=== PATIENT | male | born 2000 | race Caucasian/White ===

== ENCOUNTER 2023-06-20 10:12 | Outpatient (AMB) | payer BC, SELFPAY ==
[2023-06-20 10:40] VITALS: BP 110/70; PULSE 72; O2SAT 98; BMI 21.5
--- NOTE | 2023-06-20 10:40 | MHC.PC.OV ---
Vital Signs 06/20/23 10:40 Height 5 ft 11 in Weight 154 lb 4 oz BMI 21.5 BP 110/70 Blood Pressure Location Lt brachial Position Sitting Pulse 72 Pulse Source Pulse Oximeter Pulse Oximetry (%) 98 Oxygen Delivery Method Room Air Intake Visit Reasons: Est Care/ Requesting Annual PE Intake Note: pt is here for establish care, requesting PE Health Director Required: No Accompanied by: Self / Same As Patient Allergies Seasonal Allergies Allergy (Mild, Verified 06/20/23 10:41) sneezing, runny nose Tobacco use date assessed: 06/20/23 Dental Screening Dental Screen Date: 06/20/23 Did you have a dental visit in the last 12 months?: Yes Did you have a dental problem in the last 6 months where you did not have access to dental care?: No Was dental information given to patient?: Patient has dentist HPI HPI Comments History of Present Illness Details Patient is a 23-year-old male who I am meeting for the 1st time. Patient is transferring from pediatric care to Adult Medicine. He has a past medical history significant for type 1 diabetes, is currently being seen by [facility] adult Endocrinology. Patient currently utilizing insulin pump. Her [facility] Endocrinology office notes patient's most recent A1c on 05/22/2023 was 9.2. Patient was educated to he more balance diet and increase exercise as tolerated. Patient is up-to-date with ophthalmology. Patient does not currently see podiatry. Does have foot checks at endocrine office. Up-to-date with influenza vaccine. Next tetanus is due 2024. Will draw labs today. [facility] Medical History ADHD (attention deficit hyperactivity disorder), inattentive type Type 1 diabetes mellitus Surgical History No pertinent past surgical history Family History (Updated 06/20/23 @ 10:59 by CRAIG Manuel) Father No problems noted. Mother No problems noted. Brother No problems noted. Paternal Grandfather Myocardial infarction Social History Household Members: Family Housing: House (with parents ) Patient Tobacco Use Status: Never used Tobacco e-Cigarette/Vaping Use: Never Used Current occupational status: employed Current occupation: post office Current occupational exposures/hazards: No Cognitive needs: No Hearing needs: No Vision needs: Yes Questionnaire PHQ-9 Over the last 2 weeks, how often have you been bothered by any of the following problems? 1. Little interest or pleasure in doing things: not at all 2. Feeling down, depressed, or hopeless: not at all 3. Trouble falling or staying asleep, or sleeping too much: not at all 4. Feeling tired or having little energy: not at all 5. Poor appetite or overeating: not at all 6. Feeling bad about yourself - or that you are a failure or have let yourself or your family down: not at all 7. Trouble concentrating on things, such as reading the newspaper or watching television: not at all 8. Moving or speaking so slowly that other people could have noticed. Or the opposite - being so fidgety or restless that you have been moving around a lot more than usual: not at all 9. Thoughts that you would be better off or of hurting yourself in some way: not at all Total score: 0 Depression Screening Interpretation: Negative Depression Screening Done: Yes 91505 - PHQ-9 Billing: Yes Source: Developed by Drs. Dalton Gordon, Hannah Maciel, James Miller and colleagues, with an educational anna from [employer]. Thrive Questionnaire Date Thrive assessed: 06/20/23 I am a: Patient What is your living situation today?: I have a steady place to live Within the past 12 months, did the food you bought not last and you didn't have the money to get more?: Never true Within the past 12 months, did you worry whether your food would run out before you got money to buy more?: Never true Do you have trouble paying for medicines?: No Do you have trouble getting transportation to medical appointments?: No Do you have trouble paying your heating and electricity bill?: No Do you have trouble taking care of your child, family member or friend?: No Do you have trouble with day-to-day activities such as bathing, preparing meals, shopping, managing finances, etc.?: No Are you currently unemployed and looking for a job?: No Are you interested in more education?: No Please select the resources that you would like help with: None Currently or been in a relationship where the following occur: no concerns reported THRIVE Score: 0 AUDIT C Alcohol Use Questionnaire (AUDIT-C) 1. How often do you have a drink containing alcohol?: Never 3. How often do you have six or more drinks on one occasion?: Never Total Score: 0 Score Reviewed/Action Taken: Yes PENNIE-7 AMB Questionnaire PENNIE-7 Date PENNIE - 7 assessed: 06/20/23 Feeling nervous, anxious, or on edge: 0 = Not at all Not being able to stop or control worryin = Not at all Worrying too much about different things: 0 = Not at all Trouble relaxin = Not at all Being so restless that it is hard to sit still: 0 = Not at all Becoming easily annoyed or irritable: 0 = Not at all Feeling afraid as if something awful might happen: 0 = Not at all Total PENNIE-7 score (0-4 normal; 5-9 mild; 10-14 moderate; 15-21 severe): 0 Source: Developed by Drs. Dalton Gordon, Hannah Maciel, James Miller and colleagues, with an educational anna from [employer]. PENNIE-7 Assessment Billing PENNIE-7 Assessment Tool: PENNIE-7 Assessment 29019 Review of Systems Const All systems reviewed & are unremarkable except as noted in HPI and below Denies chills and Denies fatigue Eyes Denies blurry vision ENT Denies vertigo and Denies dizziness Card Denies chest pain and Denies dyspnea Resp Denies dyspnea GI Denies diarrhea, Denies nausea and Denies vomiting Neuro Denies vertigo and Denies dizziness Psych Denies homicidal ideation and Denies suicidal ideation Endo Denies fatigue, Denies polyphagia, Denies polydipsia and Denies polyuria Physical exam (Primary Care) BMI result Body Mass Index 21.5 Tobacco/Smoking Status: Tobacco use Status Tobacco use date assessed 06/20/23 06/20/23 10:42 Depression Screening Interpretation: Negative Thrive Assessment: Date of Thrive Assessment Date Thrive assessed 11/16/21 06/20/23 10:41 Currently or been in a relationship where the following occur: no concerns reported Const Other: Appearance: Alert.? Oriented X3.? No acute distress.? Head: Normocephalic, atraumatic, Eyes: Pupils equal, round and reactive to light.? CVS: Normal heart rate and rhythm.? Pulses normal.? Respiratory: No respiratory distress.? Breath sounds normal.? Neuro: Oriented X 3.? No motor deficit.? No sensory deficit. CN 2-12 intact Assessment and Plan Assessment & Plan (1) Type 1 diabetes mellitus: Comment: Will draw labs today. Patient has established care through [facility] adult endocrinology. Patient has been reinforced that he should eat a balanced diet. Patient works overnight and will work on snacking less. Patient will also get referral to Podiatry. Patient is up-to-date with ophthalmology Code(s): E10.9 - Type 1 diabetes mellitus without complications Qualifiers: Diabetes mellitus complication status: without complication Qualified Code(s): E10.9 - Type 1 diabetes mellitus without complications Plan: Take your medications as prescribed. If you were prescribed antibiotics today, it is important that you take your medication to their entirety, do not skip any doses, do not finish them early. Follow-up with your primary care provider this week. Return to the emergency department with new or worsening symptoms. Such as fevers, chills, chest pain, shortness of breath, nausea, vomiting, dizziness, headache, vision changes, lethargy In case of emergency call 911 Plan Follow-up with PCP for physical exam Orders: Orders Vitamin D 25-OH (D2 and D3) Today Z13.21 - Encounter for screening for nutritional disorder Vitamin B12 Today Z13.21 - Encounter for screening for nutritional disorder UA CC w/rflx Micro + Cult Today Z13.89 - Encounter for screening for other disorder Comprehensive Met. Panel Today Z91.89 - Other specified personal risk factors, not elsewhere classified Complete Blood Count Auto Diff Today Z13.0 - Encounter for screening for diseases of the blood and blood-forming organs and certain disorders involving the immune mechanism Vitamin B6 Today Z13.21 - Encounter for screening for nutritional disorder Microalbumin, Random (w Creat) Today E10.9 - Type 1 diabetes mellitus without complications TSH reflex Free T4 Today Z13.29 - Encounter for screening for other suspected endocrine disorder Referrals Podiatry Referral E10.9 - Type 1 diabetes mellitus without complications Coding Level of Care Code Est Pt Level 3 (27651) Diagnoses Type 1 diabetes mellitus without complication E10.9 Diabetes mellitus complication status: without complication Additional Codes PENNIE-7 Assessment Billing - PENNIE-7 Assessment Tool: PENNIE-7 Assessment 12669 ([id number]) Time Spent (min) 26
== END 2023-06-20 11:15 | disposition home or self-care (01) ==
PROVIDERS: PCP Pediatrics; Visit Provider Nurse Practitioner Primary Care
DX: E10.9 Type 1 diabetes mellitus without complications (principal)
CPT/HCPCS: 99213

== ENCOUNTER 2023-06-20 11:16 | Outpatient (REF) | payer BC, SELFPAY ==
[2023-06-20 13:26] LABS: MANUAL DIFF FLAG NO
[2023-06-20 13:57] LABS: Appearance Urine Clear; Color Urine Yellow; Glucose Urine UA >=1000 mg/dL (Negative); Leukocyte Esterase Urine Negative (Negative); Nitrite Urine Negative (Negative); PH 7.5 (5.0-9.0); Specific Gravity - Urine >= 1.030 (1.005-1.025); UMIC TRIGGER UACC YES; Urine Blood Negative (Negative); Urine Ketones Negative (Negative); Urine Protein Negative (Neg-Trace)
[2023-06-20 13:57] LABS: Basophils Absolute Auto 0.1 X10*3/uL (0.0-0.2); Eosinophils Absolute Auto 0.5 X10*3/uL (0.0-0.4); Hematocrit 43.5 % (42.0-52.0); Hemoglobin 14.4 g/dl (14.0-18.0); Imm Gran Abs Auto 0.02 X10*3/uL (0.00-0.03); Imm Gran Pct Auto 0.3 % (0.0-0.4); Lymphocytes Absolute Auto 1.6 X10*3/uL (1.2-4.9); Lymphocytes Percent Auto 23.4 % (20-40); Mean Corpuscular HGB Conc 33.1 g/dl (31.0-36.0); Mean Corpuscular Hemoglobin 28.6 pg (27.0-33.0); Mean Corpuscular Volume 86.3 fL (80.0-98.0); Mean Platelet Volume 11.1 fL (9.4-12.4); Monocytes Absolute Auto 0.5 X10*3/uL (0.1-1.2); Neutrophils Percent Auto 59.3 % (45-73); Platelet Count 269 X10*3/uL (160-400); Red Blood Count 5.04 X10*6/uL (4.60-5.80); Red Cell Distribution Width 12.5 % (11.0-16.0); White Blood Count 6.7 X10*3/uL (4.8-10.8)
[2023-06-20 14:05] LABS: Creatinine Urine 105.82 mg/dL; Microalbumin Urine < 5.0 mg/L
[2023-06-20 14:08] LABS: Alanine Aminotransferase 11 U/L (0-40); Albumin Level 4.7 g/dL (3.5-5.0); Alkaline Phosphatase 92 U/L (39-117); Anion Gap 11 (12-20); Aspartate Amino Transferase 13 U/L (5-37); Bilirubin Total 0.4 mg/dL (0.0-1.0); Blood Urea Nitrogen 13 mg/dL (9-16); Calcium 9.7 mg/dL (8.4-10.2); Carbon Dioxide 27 mmol/L (22-29); Chloride 105 mmol/L (96-108); Estimated Glomerular Filt Rate > 60; Glucose Random 298 mg/dL (60-115); Potassium 4.6 mmol/L (3.3-5.1); Sodium 138 mmol/L (135-145)
[2023-06-20 14:13] LABS: Bacteria Urine None Seen (None Seen); Hyaline Casts Urine 0-2 /LPF (0-2); RBC Urine 0-2 /HPF (0-2); Squamous Epithelial Cell Urine 0-2 /HPF (0-2); WBC Urine 0-5 /HPF (0-5)
[2023-06-20 14:26] LABS: Vitamin B12 623 pg/mL (200-900)
[2023-06-20 14:32] LABS: TSH reflex Free T4 2.01 uIU/mL (0.32-4.0)
[2023-06-25 16:28] LABS: Vitamin B6 18.4 ng/mL (2.1-21.7)
[2023-06-26 14:34] LABS: Vitamin D 25-OH, D2 <4 ng/mL; Vitamin D 25-OH, D3 6 ng/mL; Vitamin D 25-OH, Total 6 ng/mL (30-100)
== END 2023-06-20 11:17 | disposition home or self-care (01) ==
LOC: HO.HMGCLDS 11:16
PROVIDERS: PCP Internal Medicine; Visit Provider Nurse Practitioner Primary Care
DX: E10.9 Type 1 diabetes mellitus without complications (principal); Z13.21 Encounter for screening for nutritional disorder; Z13.0 Encounter for screening for diseases of the blood and blood-forming organs and certain disorders involving the immune mechanism; Z13.29 Encounter for screening for other suspected endocrine disorder; Z91.89 Other specified personal risk factors, not elsewhere classified; Z13.89 Encounter for screening for other disorder
CPT/HCPCS: 36415; 80053; 81001; 81003; 82043; 82306; 82570; 82607; 84207; 84443; 85025

== ENCOUNTER 2024-07-15 12:25 | Outpatient (AMB) | payer BC, SELFPAY ==
[2024-07-15 12:29] VITALS: BP 110/75; PULSE 78; TEMP 36.8; O2SAT 99; BMI 21.5
--- NOTE | 2024-07-15 12:29 | MHC.PC.OV ---
Vital Signs 07/15/24 12:29 Height 5 ft 11 in Weight 154 lb BMI 21.5 BP 110/75 Pulse 78 Pulse Source Pulse Oximeter Temp 98.2 F Temp Source Oral Pulse Oximetry (%) 99 Oxygen Delivery Method Room Air Intake Visit Reasons: transfer from [facility] [address] Boss Required: No Accompanied by: Self / Same As Patient Allergies Seasonal Allergies Allergy (Mild, Verified 07/15/24 12:48) sneezing, runny nose Medication List - Last Reconciled 07/15/24 by DANITZA BarriosP- blood-glucose sensor (Dexcom G6 Sensor device) As directed blood-glucose transmitter (Dexcom G6 Transmitter device) As directed insulin lispro subcut insulin pump cart,auto,BT,G6/7 (Omnipod 5 G6-G7 Pods (Gen 5) subcutaneous cartridge) As directed pen needle, diabetic As directed Tobacco use date assessed: 07/15/24 Dental Screening Dental Screen Date: 07/15/24 Did you have a dental visit in the last 12 months?: Yes Did you have a dental problem in the last 6 months where you did not have access to dental care?: No Was dental information given to patient?: Patient has dentist HPI transfer from [facility] HPI Details Chief Complaint Patient reports a new diagnosis of diabetes type 1. History of Present Illness The patient is a 23-year-old male presenting for diabetes management. Diagnosed with Type 1 Diabetes Mellitus at 16 months of age, he has been under regular endocrinology care. The patient had a previous A1c range between 9 and 10, indicating poor glycemic control. Recently, the patient reports improvement with A1c levels now between 6 and 7.5. This indicates better compliance and effective use of his insulin pump. His average blood glucose readings have consistently been between 120 to 130 mg/dL. The patient denies symptoms of neuropathy and has a forthcoming eye examination this summer, reflecting vigilant diabetic retinopathy screening. He also denies experiencing shortness of breath, fever, chills, polyuria, polydipsia, or neuropathy, suggesting good symptomatic control of his condition. Social History - Exercise and activity: Patient uses an insulin pump and manages blood glucose levels actively. Health Maintenance - Scheduled eye examination for diabetic retinopathy screening. - Regular endocrinology visits for diabetes management. Review of Systems - Endocrine: Reports recent improvement in A1c levels to between 6 and 7.5. Denies polyuria and polydipsia. - Neurologic: Denies neuropathy. - Respiratory: Denies shortness of breath. - Constitutional: Denies fever and chills. Physical Exam General: Cooperative, healthy appearing, comfortable, no acute distress and well developed Orientation: Patient oriented x3 Limitations: No limitations Head: Normal to inspection Ears: Hearing grossly normal bilaterally Nose: Normal external nose present Face and sinus: Normal facial exam Eyes: Appearance normal, both eyes and all related structures Neck: Normal visual inspection and Yes full ROM Respiratory: Normal respiratory effort and able to speak in complete sentences. Clear to auscultation bilaterally Cardiovascular: Regular rate and rhythm. Normal S1 and S2 GI: Normal to inspection. Soft to palpation and nontender Skin: No rashes or lesions noted Neuro: Patient oriented x3 Extremities: Normal to inspection, feet intact bilaterally with positive sensation using monofilament Results Plan Management of Type 1 Diabetes Mellitus includes maintaining regular endocrinology follow-ups and adherence to insulin pump therapy, which has led to improved A1c levels. It is crucial to continue monitoring blood glucose levels and perform regular eye exams to screen for diabetic retinopathy. The patient currently denies neuropathy, and foot examination confirmed intact sensation. Ongoing diabetic self-management education and possible lifestyle adjustments will be vital to further improve glycemic control and overall health outcomes. Discussion Notes I discussed with the patient the current management strategies in place for his Type 1 Diabetes Mellitus. We reviewed the improvement in his A1c levels, which indicates positive compliance with his treatment plan. The importance of continued endocrinology consultations to optimize care was emphasized. We also discussed the need for routine eye examinations to monitor for diabetic retinopathy proactively. I encouraged the patient to continue self-monitoring of blood glucose and to maintain an open line of communication regarding any potential symptoms or complications. We will reconvene for further evaluations as necessary and anticipate continued diligence in the management of his condition. Patient Instructions - Continue to monitor your blood glucose levels regularly. - Ensure you attend your scheduled eye examination this summer. - Maintain routine follow-up visits with your supplier diversity director. - Monitor for any new symptoms and contact the office if you experience neuropathy or other complications. [facility] Medical History Type 1 diabetes mellitus ADHD (attention deficit hyperactivity disorder), inattentive type Surgical History No pertinent past surgical history Family History Father No problems noted. Mother No problems noted. Brother No problems noted. Paternal Grandfather Myocardial infarction Social History Household Members: Family Housing: House (with parents ) Patient Tobacco Use Status: Never used Tobacco e-Cigarette/Vaping Use: Never Used Current occupational status: employed Current occupation: post office Current occupational exposures/hazards: No Cognitive needs: No Hearing needs: No Vision needs: Yes Questionnaire PHQ-9 Over the last 2 weeks, how often have you been bothered by any of the following problems? 1. Little interest or pleasure in doing things: not at all 2. Feeling down, depressed, or hopeless: not at all 3. Trouble falling or staying asleep, or sleeping too much: not at all 4. Feeling tired or having little energy: not at all 5. Poor appetite or overeating: not at all 6. Feeling bad about yourself - or that you are a failure or have let yourself or your family down: not at all 7. Trouble concentrating on things, such as reading the newspaper or watching television: not at all 8. Moving or speaking so slowly that other people could have noticed. Or the opposite - being so fidgety or restless that you have been moving around a lot more than usual: not at all 9. Thoughts that you would be better off or of hurting yourself in some way: not at all Total score: 0 Depression Screening Interpretation: Negative Depression Screening Done: Yes 47176 - PHQ-9 Billing: Yes Source: Developed by Drs. Dalton Gordon, Hannah Maciel, James Miller and colleagues, with an educational anna from [employer]. Thrive Questionnaire Date Thrive assessed: 07/15/24 I am a: Patient What is your living situation today?: I have a steady place to live Within the past 12 months, did the food you bought not last and you didn't have the money to get more?: Never true Within the past 12 months, did you worry whether your food would run out before you got money to buy more?: Never true Do you have trouble paying for medicines?: No Do you have trouble getting transportation to medical appointments?: No Do you have trouble paying your heating and electricity bill?: No Do you have trouble taking care of your child, family member or friend?: No Do you have trouble with day-to-day activities such as bathing, preparing meals, shopping, managing finances, etc.?: No Are you currently unemployed and looking for a job?: No Are you interested in more education?: No Please select the resources that you would like help with: None Currently or been in a relationship where the following occur: No concerns reported THRIVE Score: 0 AUDIT C Alcohol Use Questionnaire (AUDIT-C) 1. How often do you have a drink containing alcohol?: Never 3. How often do you have six or more drinks on one occasion?: Never Total Score: 0 Score Reviewed/Action Taken: Yes PENNIE-7 AMB Questionnaire PENNIE-7 Date PENNIE - 7 assessed: 07/15/24 Feeling nervous, anxious, or on edge: 0 = Not at all Not being able to stop or control worryin = Not at all Worrying too much about different things: 0 = Not at all Trouble relaxin = Not at all Being so restless that it is hard to sit still: 0 = Not at all Becoming easily annoyed or irritable: 0 = Not at all Feeling afraid as if something awful might happen: 0 = Not at all Total PENNIE-7 score (0-4 normal; 5-9 mild; 10-14 moderate; 15-21 severe): 0 Source: Developed by Drs. Dalton Gordon, Hannah Maciel, James Miller and colleagues, with an educational anna from [employer]. PENNIE-7 Assessment Billing PENNIE-7 Assessment Tool: PENNIE-7 Assessment 68492 Physical exam (Primary Care) Vital Signs: Last Vital Signs Temp 98.2 F 07/15/24 12:29 Pulse 78 07/15/24 12:29 BP 110/75 07/15/24 12:29 Pulse Ox 99 07/15/24 12:29 Oxygen Delivery Method Room Air 07/15/24 12:29 BMI result Body Mass Index 21.5 Tobacco/Smoking Status: Tobacco use Status Tobacco use date assessed 07/15/24 07/15/24 12:41 Patient Tobacco Use Status Never used Tobacco 07/15/24 12:41 e-Cigarette/Vaping Use Never Used 07/15/24 12:41 PHQ-9: PHQ-9 Score PHQ-9: Total score 0 07/15/24 12:41 Depression Screening Interpretation: Negative Thrive Assessment: Date of Thrive Assessment Date Thrive assessed 07/15/24 07/15/24 12:41 Currently or been in a relationship where the following occur: No concerns reported Coding Level of Care Code New Pt Prev Care 18-39yr(15033 Diagnoses Type 1 diabetes mellitus without complication E10.9 Diabetes mellitus complication status: without complication Additional Codes PENNIE-7 Assessment Billing - PENNIE-7 Assessment Tool: PENNIE-7 Assessment 58208 ([id number]) PHQ-9 - 98791 - PHQ-9 Billing: Yes ([id number]) Assessment & Plan Assessment & Plan (1) Type 1 diabetes mellitus: Comment: Will draw labs today. Patient has established care through [facility] adult endocrinology. Patient has been reinforced that he should eat a balanced diet. Patient works on day shift now, reports 120-130s Patient has a appointment with ophthalmology in the near future. Code(s): E10.9 - Type 1 diabetes mellitus without complications Category: Medical Qualifiers: Diabetes mellitus complication status: without complication Qualified Code(s): E10.9 - Type 1 diabetes mellitus without complications Plan . Orders: Orders Complete Blood Count Auto Diff Today E10.9 - Type 1 diabetes mellitus without complications Comprehensive [place]. Panel Fast Today E10.9 - Type 1 diabetes mellitus without complications TSH reflex Free T4 Today E10.9 - Type 1 diabetes mellitus without complications Lipid Panel Today E10.9 - Type 1 diabetes mellitus without complications UA CC w/rflx Micro + Cult Today E10.9 - Type 1 diabetes mellitus without complications Microalbumin, Random (w Creat) Today E10.9 - Type 1 diabetes mellitus without complications
== END 2024-07-15 13:00 | disposition home or self-care (01) ==
LOC: HO.HMCC 12:26
PROVIDERS: PCP Internal Medicine; Visit Provider Nurse Practitioner Family
DX: Z00.00 Encounter for general adult medical examination without abnormal findings (principal); E10.9 Type 1 diabetes mellitus without complications

== ENCOUNTER → 2024-07-15 12:25 | Outpatient (BNVA) | payer BC, SELFPAY | PROVIDERS: PCP Internal Medicine; Visit Provider Nurse Practitioner Family | DX: E10.9 Type 1 diabetes mellitus without complications (principal) | CPT/HCPCS: 96127 ==